=== PATIENT | female | born 1990 | race Caucasian/White ===

== ENCOUNTER 2017-06-08 04:56 | Emergency (ER) | payer OTHER ==
[~2017-06-08] VITALS: Ht 157.5 cm; Wt 70.3 kg
[2017-06-08 05:20] LABS: BILIRUBIN,URINE NEGATIVE (NEG); GLUCOSE,URINE NEGATIVE (NEG); NITRITE,URINE NEGATIVE (NEG); PH,URINE 5.5; PROTEIN,URINE NEGATIVE (NEG-TRACE); UROBILINOGEN,URINE 0.2 mg/dL (0.2 mg/dL)
[2017-06-08 05:30] LABS: BACTERIA,URINE 0 /HPF (0-FEW); SQUAMOUS EPITHELIAL CELL,UR FEW /LPF; WBC,URINE 0 /HPF (0-4)
--- NOTE | 2017-06-08 05:41 | PHYS DOC ---
Past Medical History Past Medical History: No Pertinent History Past Surgical History: No Surgical History Alcohol Use: None Drug Use: None Adult General Chief Complaint Chief Complaint: VAGINAL BLEEDING HPI HPI Patient is a 27 year old female who presents with vaginal bleeding and cramping. She has never been . She has very irregular periods with her LMP February. She doesn't believe she is . She states it started at 0230 am "and I was on the toilet with it bleeding constantly for 1.5 hours." has used one pad. No recent illness; no recent travel. Review of Systems Review of Systems Constitutional: Denies fever or chills Eyes: Denies change in visual acuity, redness, or eye pain HENT: Denies nasal congestion or sore throat Respiratory: Denies cough or shortness of breath Cardiovascular: No chest pain GI: Denies abdominal pain, nausea, vomiting, bloody stools or diarrhea :POS bleeding and cramping. : Denies dysuria or hematuria Musculoskeletal: Denies back pain or joint pain Integument: Denies rash or skin lesions Neurologic: Denies headache, focal weakness or sensory changes Current Medications Current Medications Current Medications Medications (Trade) Dose Ordered Sig/Azar Start Time Stop Time Status Last Admin Dose Admin Fentanyl Citrate (Fentanyl 2ml Vial) 50 mcg 1X ONCE 06/08/17 06:00 06/08/17 06:01 DC 06/08/17 06:22 50 MCG Ondansetron HCl (Zofran) 4 mg 1X ONCE 06/08/17 06:00 06/08/17 06:01 DC 06/08/17 06:23 4 MG Sodium Chloride 1,000 ml @ 1,000 mls/hr 1X ONCE 06/08/17 06:00 06/08/17 06:59 06/08/17 06:23 1,000 MLS/HR Allergies Allergies Allergies Coded Allergies Type Severity Reaction Last Updated Verified No Known Drug Allergies 06/08/17 No Physical Exam Physical Exam Constitutional: Well developed, well nourished, no acute distress, non-toxic appearance. HENT: Normocephalic, atraumatic, bilateral external ears normal, oropharynx moist, no oral exudates, nose normal. Eyes: PERRLA, EOMI, conjunctiva normal, no discharge. Neck: Normal range of motion, no tenderness, supple, no stridor. Cardiovascular:Heart rate regular rhythm, no murmur Lungs & Thorax: Bilateral breath sounds clear to auscultation Abdomen: Bowel sounds normal, soft, no tenderness, no masses, no pulsatile masses. 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 Os open to tip; no cervical motion tenderness. Skin: Warm, dry, no erythema, no rash. Back: No tenderness, no CVA tenderness. Extremities: No tenderness, no cyanosis, no clubbing, ROM intact, no edema. Neurologic: Alert and oriented X 3, normal motor function, normal sensory function, no focal deficits noted. Current Patient Data Vital Signs Vital Signs Date Time Temp Pulse Resp B/P (MAP) Pulse Ox O2 Delivery O2 Flow Rate FiO2 06/08/17 06:22 16 06/08/17 05:16 98.3 79 117/75 (89) 100 Room Air 98.3 Lab Values Laboratory Tests Test 06/08/17 05:13 06/08/17 05:14 06/08/17 05:34 POC Urine HCG, Qualitative Hcg positive (Negative) Urine Collection Type Unknown Urine Color Yellow Urine Clarity Cloudy Urine pH 5.5 Urine Specific [place] 1.025 Urine Protein Negative mg/dL (NEG-TRACE) Urine Glucose (UA) Negative mg/dL (NEG) Urine Ketones (Stick) Negative mg/dL (NEG) Urine Blood Large (NEG) Urine Nitrite Negative (NEG) Urine Bilirubin Negative (NEG) Urine Urobilinogen Dipstick 0.2 mg/dL (0.2 mg/dL) Urine Leukocyte Esterase Negative (NEG) Urine RBC 6-10 /HPF (0-2) Urine WBC 0 /HPF (0-4) Urine Squamous Epithelial Cells Few /LPF Urine Bacteria 0 /HPF (0-FEW) White Blood Count 13.8 x10^3/uL (4.0-11.0) H Red Blood Count 4.32 x10^6/uL (3.50-5.40) Hemoglobin 13.1 g/dL (12.0-15.5) Hematocrit 38.5 % (36.0-47.0) Mean Corpuscular Volume 89 fL (79-100) Mean Corpuscular Hemoglobin 30 pg (25-35) Mean Corpuscular Hemoglobin Concent 34 g/dL (31-37) Red Cell Distribution Width 13.7 % (11.5-14.5) Platelet Count 230 x10^3/uL (140-400) Neutrophils (%) (Auto) 80 % (31-73) H Lymphocytes (%) (Auto) 13 % (24-48) L Monocytes (%) (Auto) 6 % (0-9) Eosinophils (%) (Auto) 1 % (0-3) Basophils (%) (Auto) 0 % (0-3) Neutrophils # (Auto) 11.0 x10^3uL (1.8-7.7) H Lymphocytes # (Auto) 1.8 x10^3/uL (1.0-4.8) Monocytes # (Auto) 0.8 x10^3/uL (0.0-1.1) Eosinophils # (Auto) 0.2 x10^3/uL (0.0-0.7) Basophils # (Auto) 0.1 x10^3/uL (0.0-0.2) Maternal Serum HCG Beta Subunit 3590 mIU/mL (0-5) H Sodium Level 138 mmol/L (136-145) Potassium Level 4.1 mmol/L (3.5-5.1) Chloride Level 103 mmol/L (98-107) Carbon Dioxide Level 28 mmol/L (21-32) Anion Gap 7 (6-14) Blood Urea Nitrogen 18 mg/dL (7-20) Creatinine 0.7 mg/dL (0.6-1.0) Estimated GFR (Cockcroft-Gault) 98.9 BUN/Creatinine Ratio 26 (6-20) H Glucose Level 102 mg/dL (70-99) H Calcium Level 9.1 mg/dL (8.5-10.1) Total Bilirubin 0.2 mg/dL (0.2-1.0) Aspartate Amino Transferase (AST) 21 U/L (15-37) Alanine Aminotransferase (ALT) 32 U/L (14-59) Alkaline Phosphatase 88 U/L (46-116) Total Protein 7.2 g/dL (6.4-8.2) Albumin 3.5 g/dL (3.4-5.0) Albumin/Globulin Ratio 0.9 (1.0-1.7) L Laboratory Tests 06/08/17 05:34 Laboratory Tests 06/08/17 05:34 Course & Med Decision Making Course & Med Decision Making Evaluated patient. POS UCG; informed patient. She is a now. US ordered. Concerned for ectopic vs miscarriage. RH and quant HCG ordered. Patient is comfortable. Fentanyl IV for pain; keep NPO. At 0620 AM US done; awaiting radiologist read. Quant and blood type is pending. Updated patient and care of patient turned over at shift change to Dr Meadows. Daniela Disclaimer Daniela Disclaimer This electronic medical record was generated, in whole or in part, using a voice recognition dictation system. Departure Departure Impression: Primary Impression: Vagina bleeding Referrals: NO PCP (PCP) AMIRA COLE MD Jun 08, 2017 05:41
[2017-06-08 05:57] LABS: BASO # 0.1 x10^3/uL (0.0-0.2); BASO % 0 % (0-3); EOS % 1 % (0-3); HEMATOCRIT 38.5 % (36.0-47.0); HEMOGLOBIN 13.1 g/dL (12.0-15.5); LYMPH # 1.8 x10^3/uL (1.0-4.8); LYMPH % 13 % (24-48); MEAN CORPUSCULAR HEMOGLOBIN 30 pg (25-35); MEAN CORPUSCULAR HGB CONC 34 g/dL (31-37); MEAN CORPUSCULAR VOLUME 89 fL (79-100); MONO % 6 % (0-9); NEUT % 80 % (31-73); PLATELET COUNT 230 x10^3/uL (140-400); RED BLOOD COUNT 4.32 x10^6/uL (3.50-5.40); RED CELL DISTRIBUTION WIDTH 13.7 % (11.5-14.5); WHITE BLOOD COUNT 13.8 x10^3/uL (4.0-11.0)
[2017-06-08] MEDS ORDERED: IV NORMAL SALINE 1000ML BAG 1,000 ML IV ONE (06:00)
[2017-06-08] MEDS ORDERED: fentaNYL PF VIAL 100 MCG/2 ML VIAL IV ONE (06:00)
[2017-06-08] MEDS ORDERED: ONDANSETRON PF 4 MG/2 ML VIAL. IV ONE (06:00)
[2017-06-08 06:01] LABS: CALCIUM 9.1 mg/dL (8.5-10.1); CREATININE 0.7 mg/dL (0.6-1.0); GFR 98.9; POTASSIUM 4.1 mmol/L (3.5-5.1)
[2017-06-08 06:08] LABS: ALBUMIN 3.5 g/dL (3.4-5.0); ALBUMIN/GLOBULIN RATIO 0.9 (1.0-1.7); TOTAL BILIRUBIN 0.2 mg/dL (0.2-1.0); TOTAL PROTEIN 7.2 g/dL (6.4-8.2)
--- NOTE | 2017-06-08 07:19 | RAD ---
Obstetric ultrasound June 08, 2017 at 5:46 AM INDICATION: Vaginal bleeding and cramping COMPARISON: None available TECHNIQUE: Sonographic imaging of the pelvis was performed utilizing transabdominal and transvaginal imaging. Color Doppler, spectral waveform analysis and grayscale was utilized. FINDINGS: The uterus measures 9.5 x 4.9 x 3.9 cm. Gestational sac is not identified. No yolk sac or pole identified. No uterine fibroids are identified. Right ovary measures 3.6 x 1.9 x 1.8 cm. Left ovary measures 3.8 x 2.1 x 2.0 cm. No significant masses are identified. Arterial and venous waveform are identified in both ovaries at the time of imaging. No free fluid is identified. Visualized is a portions of the urinary bladder within normal limits. IMPRESSION: An intrauterine is not identified. Findings could represent very early versus failure versus ectopic . Correlation with beta-hCG is recommended. Recommend serial beta hCG and pelvic ultrasound for further evaluation. Electronically signed by: Jeanie Mtz MD (06/08/2017 7:16 AM) [facility]
[2017-06-08 07:41] VITALS: BP 99/58
== END 2017-06-08 07:45 | disposition home or self-care (01) ==
LOC: ER 04:56
DX: Z33.1 Pregnant state, incidental (principal); N93.9 Abnormal uterine and vaginal bleeding, unspecified
CPT/HCPCS: 36415; 76801; 76817; 80053; 81001; 81025; 84702; 85025; 86900; 86901; 87491; 87591; 96361; 96374; 96375; 99285; J2405; J3010; J7030

== ENCOUNTER 2020-08-17 01:31 | Emergency (ER) | payer OTHER ==
[~2020-08-17] VITALS: Ht 157.5 cm; Wt 84.1 kg
[2020-08-17] MEDS ORDERED: ONDANSETRON PF 4 MG/2 ML VIAL. IVP ONE (02:00)
[2020-08-17] MEDS ORDERED: KETOROLAC 30 MG/ML VIAL. IVP ONE (02:00)
[2020-08-17] MEDS ORDERED: IV NORMAL SALINE 1000ML BAG 1,000 ML IV ONE (02:00)
--- NOTE | 2020-08-17 02:01 | PHYS DOC ---
Past Medical History Past Medical History: No Pertinent History Past Surgical History: No Surgical History Smoking Status: Never Smoker Alcohol Use: None Drug Use: None General Adult EDM: Chief Complaint: ABDOMINAL PAIN HPI: HPI: Patient is a 30 year old female who presents with right upper quadrant abdomina l pain. Patient states she has been having a constant, dull, aching pain in her mid epigastric region radiating through her right upper quadrant and up to her right scapula. Patient states the pain began around 2000 tonight after eating dinner. Since then she has had 3 episodes of vomiting. Patient denies fever or diarrhea. Last Thursday the patient experienced a bout of the same symptoms that began after she ate dinner and lasted throughout the night. She vomited 3 times that night as well. That pain resolved spontaneously around 0500 on Thursday morning. Patient denies taking any medications due to fear of vomiting after ingestion. Patient rates the pain an 8/10. Review of Systems: Review of Systems: Constitutional: Denies fever or chills. [] Eyes: Denies change in visual acuity. [] HENT: Denies nasal congestion or sore throat. [] Respiratory: Denies cough or shortness of breath. [] Cardiovascular: Denies chest pain or edema. [] GI: Denies bloody stools or diarrhea. [Positive for abdominal pain, nausea and vomiting] : Denies dysuria. [] Musculoskeletal: Denies joint pain. [Positive for back pain] Integument: Denies rash. [] Neurologic: Denies headache, focal weakness or sensory changes. [] Endocrine: Denies polyuria or polydipsia. [] Heart Score: Risk Factors: Risk Factors: DM, Current or recent (<one month) smoker, HTN, HLP, family history of CAD, obesity. Risk Scores: Score 0 - 3: 2.5% MACE over next 6 weeks - Discharge Home Score 4 - 6: 20.3% MACE over next 6 weeks - Admit for Clinical Observation Score 7 - 10: 72.7% MACE over next 6 weeks - Early Invasive Strategies Current Medications: Current Medications Medications (Trade) Dose Ordered Sig/Azar Start Time Stop Time Status Last Admin Dose Admin Ketorolac Tromethamine (Toradol 30mg Vial) 30 mg 1X ONCE 08/17/20 01:45 08/17/20 01:46 UNV Ondansetron HCl (Zofran) 4 mg 1X ONCE 08/17/20 01:45 08/17/20 01:46 UNV Sodium Chloride 1,000 ml @ 1,000 mls/hr 1X ONCE 08/17/20 02:00 08/17/20 02:59 UNV Allergies: Allergies: Allergies Coded Allergies Type Severity Reaction Last Updated Verified No Known Drug Allergies 06/08/17 No Physical Exam: PE: Constitutional: Well developed, well nourished, no acute distress, non-toxic appearance. [] HENT: Normocephalic, atraumatic, bilateral external ears normal, oropharynx moist, no oral exudates, nose normal. [] Eyes: PERRLA, EOMI, conjunctiva normal, no discharge. [] Neck: Normal range of motion, no tenderness, supple, no stridor. [] Cardiovascular:Heart rate regular rhythm, no murmur [] Lungs & Thorax: Bilateral breath sounds clear to auscultation [] Abdomen: Bowel sounds normal, soft, no tenderness, no masses, no pulsatile masses. [] Skin: Warm, dry, no erythema, no rash. [] Back: No tenderness, no CVA tenderness. [] Extremities: No tenderness, no cyanosis, no clubbing, ROM intact, no edema. [] Neurologic: Alert and oriented X 3, normal motor function, normal sensory function, no focal deficits noted. [] Psychologic: Affect normal, judgement normal, mood normal. [] EKG: EKG: [] Radiology/Procedures: Radiology/Procedures: [] Impression: []IMPRESSION: Borderline distended gallbladder with cholelithiasis, nonspecific but can be seen with cholecystitis. Correlate clinically and consider right upper quadrant ultrasound for further evaluation if indicated. Mild sigmoid diverticulosis without evidence of diverticulitis. Course & Med Decision Making: Course & Med Decision Making Pertinent Labs and Imaging studies reviewed. (See chart for details) []IMPRESSION: Patient was evaluated for chief complaint. Work-up consisted of laboratory analysis and radiologic imaging. Results reviewed and discussed with patient. Patient LFTs were normal limits. Patient with mild elevation of her white blood cell count. CT imaging shows distended gallbladder with multiple stones. Treatment included Toradol for pain. Patient states post treatment pain completely resolved. Patient given follow-up information for general surgery. She was discharged with a prescription of [place]. Patient advised to take Tylenol and/or ibuprofen for pain. Patient advised to return to the ER if symptoms return persist or any new concerning symptoms arise. Dragon Disclaimer: Daniela Disclaimer: This electronic medical record was generated, in whole or in part, using a voice recognition dictation system. Departure Departure Impression: Primary Impression: Cholelithiases Disposition: 01 DC HOME SELF CARE/HOMELESS Condition: STABLE Referrals: NO PCP (PCP) Patient Instructions: Cholelithiasis Scripts Hydrocodone/Apap 5-325 (NORCO 5-325 TABLET) 1 Each Tablet 1 TAB PO PRN Q6HRS PRN for PAIN for 10 Days, #20 TAB 0 Refills Prov: LISA LOPES I DO 08/17/20 LISA LOPES I DO Aug 17, 2020 02:01
[2020-08-17 02:13] LABS: BASO # 0.1 x10^3/uL (0.0-0.2); BASO % 1 % (0-3); EOS # 0.2 x10^3/uL (0.0-0.7); EOS % 1 % (0-3); HEMATOCRIT 40.7 % (36.0-47.0); HEMOGLOBIN 13.7 g/dL (12.0-15.5); LYMPH # 2.6 x10^3/uL (1.0-4.8); LYMPH % 23 % (24-48); MEAN CORPUSCULAR HEMOGLOBIN 30 pg (25-35); MEAN CORPUSCULAR HGB CONC 34 g/dL (31-37); MEAN CORPUSCULAR VOLUME 89 fL (79-100); MONO # 0.6 x10^3/uL (0.0-1.1); MONO % 6 % (0-9); NEUT # 7.9 x10^3/uL (1.8-7.7); NEUT % 69 % (31-73); PLATELET COUNT 250 x10^3/uL (140-400); RED BLOOD COUNT 4.57 x10^6/uL (3.50-5.40); RED CELL DISTRIBUTION WIDTH 12.8 % (11.5-14.5); WHITE BLOOD COUNT 11.3 x10^3/uL (4.0-11.0)
[2020-08-17 02:20] LABS: CALCIUM 9.2 mg/dL (8.5-10.1); GFR 64.3; POTASSIUM 3.7 mmol/L (3.5-5.1)
[2020-08-17 02:26] LABS: ALBUMIN 3.9 g/dL (3.4-5.0); ALBUMIN/GLOBULIN RATIO 1.1 (1.0-1.7); TOTAL BILIRUBIN 0.3 mg/dL (0.2-1.0); TOTAL PROTEIN 7.6 g/dL (6.4-8.2)
[2020-08-17] MEDS ORDERED: IOHEXOL 300 MG/ML 100ML VIAL. IV ONE (03:00)
--- NOTE | 2020-08-17 03:12 | RAD ---
EXAMINATION: CT ABD PELV W/ IV CONTRST ONLY (CT ABDOMEN/PELVIS WITH IV CONTRAST) CLINICAL HISTORY: Right upper quadrant abdominal pain TECHNIQUE: CT of the abdomen and pelvis was performed using standard technique, scanning from just above the dome of the diaphragm to the symphysis pubis following administration of intravenous contrast. CT Dose Reduction Employed: One or more of the following individualized dose reduction techniques were utilized for this examination: 1. Automated exposure control 2. Adjustment of the mA and/or kV according to patient size 3. Use of iterative reconstruction technique. COMPARISON: None FINDINGS: Partially visualized heart and lung base is unremarkable. Borderline distended gallbladder with innumerable dependent tiny calcified stones. No evidence of wall thickening or pericholecystic fluid on limited CT evaluation. No biliary ductal dilation. Liver, gallbladder, spleen, and adrenal glands unremarkable. Subcentimeter hypoenhancing cortical focus in the midpole the left kidney, too small adequately evaluated but likely benign. Right kidney unremarkable. Decompressed urinary bladder suboptimally evaluated. Crenulated hyperdensity in the left ovary, suggestive of an involuting cyst/corpus luteum. Right ovary and uterus unremarkable. Mild free fluid in the pelvis, likely physiologic versus reactive. No bowel dilation or definite wall thickening. Mild sigmoid diverticulosis without definitive evidence of diverticulitis, though lack of adequate distention limits evaluation for wall thickening. Normal appendix. No abdominal aortic or iliac artery aneurysm. No significant lymphadenopathy. Minimal degenerative changes in the lower thoracic spine. IMPRESSION: Borderline distended gallbladder with cholelithiasis, nonspecific but can be seen with cholecystitis. Correlate clinically and consider right upper quadrant ultrasound for further evaluation if indicated. Mild sigmoid diverticulosis without evidence of diverticulitis. Electronically signed by: Robby Marin DO (08/17/2020 3:09 AM) [facility]
[2020-08-17] MEDS ORDERED: CONTRAST GIVEN. MC PRN (03:15)
[2020-08-17] MEDS ORDERED: HYDR-3164 PO (03:24)
[2020-08-17 03:30] VITALS: BP 118/67
== END 2020-08-17 03:40 | disposition home or self-care (01) ==
LOC: ER 01:46
DX: K80.20 Calculus of gallbladder without cholecystitis without obstruction (principal); K57.30 Diverticulosis of large intestine without perforation or abscess without bleeding
CPT/HCPCS: 36415; 74177; 80053; 81025; 83690; 85025; 96361; 96374; 96375; 99285; J1885; J2405; J7030; Q9967

== ENCOUNTER → 2020-09-24 | Outpatient (CLI) | payer OTHER, BC ==
[~2020-09-24] MED LIST: HYDR-3164 PO
== END ==
LOC: LAB 12:57
PROVIDERS: ATTEND Surgery
DX: Z01.812 Encounter for preprocedural laboratory examination (principal); K81.1 Chronic cholecystitis; Z20.828 Contact with and (suspected) exposure to other viral communicable diseases
CPT/HCPCS: U0003

== ENCOUNTER 2020-09-27 06:02 | Day surgery (SDC) | payer OTHER, BC ==
[~2020-09-27] VITALS: Ht 157.5 cm; Wt 85.0 kg
[~2020-09-27 06:02] MED LIST changes: +INDOCYANINE GREEN 2.5 MG in TOTAL VOLUME SYRINGE 1 ML IVP ONE
[2020-09-27] MEDS: IV RINGERS,LACTATED 1000ML 1,000 ML IV SCH ×2 (06:28→07:18)
[2020-09-27] MEDS ORDERED: DEXAMETHASONE SOD PHOS 4 MG/ML VIAL ONE (06:39)
[2020-09-27] MEDS ORDERED: ONDANSETRON PF 4 MG/2 ML VIAL. ONE (06:39)
[2020-09-27] MEDS ORDERED: LIDOCAINE 2% PF 5 ML VIAL. ONE (06:39)
[2020-09-27] MEDS ORDERED: PROPOFOL 10 MG/ML (20ML) VIAL. IV ONE (06:39)
[2020-09-27] MEDS ORDERED: ROCURONIUM 50 MG/5 ML VIAL. ONE (06:40)
[2020-09-27] MEDS ORDERED: ONDANSETRON PF 4 MG/2 ML VIAL. IV PRN (07:00)
[2020-09-27] MEDS ORDERED: fentaNYL PF VIAL 100 MCG/2 ML VIAL IV PRN ×2 (07:00)
[2020-09-27] MEDS ORDERED: PROCHLORPERAZINE 10 MG/2 ML VIAL. IV PRN (07:00)
[2020-09-27] MEDS ORDERED: ACETAMINOPHEN 500 MG TABLET PO ONE (07:00)
[2020-09-27] MEDS ORDERED: LIDOCAINE 1% PF 2 ML VIAL. ID PRN (07:00)
[2020-09-27] MEDS ORDERED: MORPHINE SULFATE 2 MG/ML VIAL. IV PRN (07:00)
[2020-09-27] MEDS ORDERED: HYDROmorphone 2 MG/ML VIAL IV PRN (07:00)
[2020-09-27] MEDS ORDERED: SURGICEL HEMOSTAT 4X8 EACH. ONE (07:19)
[2020-09-27] MEDS ORDERED: MIDAZOLAM HCL/PF 2 MG/2 ML VIAL. ONE (07:20)
--- NOTE | 2020-09-27 07:26 | PDOC1 ---
History and Physical Date of Admission Date of Admission DATE: 09/27/20 TIME: 07:24 Identification/Chief Complaint Chief Complaint Abdominal pain Source Source: Patient History of Present Illness History of Present Illness 30-year-old female with right upper quadrant abdominal pain radiating to her right shoulder seen in the emergency department for evaluation CT scan shows gallstones. Past Medical History Cardiovascular: No pertinent hx Pulmonary: No pertinent hx GI: No pertinent hx Heme/Onc: No pertinent hx Hepatobiliary: No pertinent hx Psych: No pertinent hx Rheumatologic: No pertinent hx Infectious disease: No pertinent hx ENT: No pertinent hx Renal/: No pertinent hx Endocrine: No pertinent hx Dermatology: No pertinent hx Past Surgical History Past Surgical History: No pertinent history Family History Family History: No Significant Social History Smoke: No ALCOHOL: rare Drugs: None Current Medications Current Medications Current Medications Indocyanine Green 2.5 mg/ Miscellaneous 1 ml @ 60 mls/hr 1X ONCE IVP Last admi nistered on 09/27/20at 07:19; Start 09/27/20 at 06:00; Stop 09/27/20 at 06:01; Status DC Ondansetron HCl (Zofran) 4 mg PRN Q6HRS PRN IV NAUSEA/VOMITING; Start 09/27/20 at 07:00; Stop 09/28/20 at 06:59 Fentanyl Citrate (Fentanyl 2ml Vial) 25 mcg PRN Q5MIN PRN IV MILD PAIN 1-3; Start 09/27/20 at 07:00; Stop 09/28/20 at 06:59 Fentanyl Citrate (Fentanyl 2ml Vial) 50 mcg PRN Q5MIN PRN IV MODERATE TO SEVERE PAIN; Start 09/27/20 at 07:00; Stop 09/28/20 at 06:59 Morphine Sulfate (Morphine Sulfate) 1 mg PRN Q10MIN PRN IV SEVERE PAIN 7-10; Start 09/27/20 at 07:00; Stop 09/28/20 at 06:59 Ringer's Solution 1,000 ml @ 30 mls/hr Q24H IV Last administered on 09/27/20at 07:18; Start 09/27/20 at 07:00; Stop 09/27/20 at 18:59 Lidocaine HCl (Xylocaine-Mpf 1% 2ml Vial) 2 ml PRN 1X PRN ID PRIOR TO IV START; Start 09/27/20 at 07:00; Stop 09/28/20 at 06:59 Hydromorphone HCl (Dilaudid) 0.5 mg PRN Q10MIN PRN IV SEV PAIN, Second choice; Start 09/27/20 at 07:00; Stop 09/28/20 at 06:59 Prochlorperazine Edisylate (Compazine) 5 mg PACU PRN PRN IV NAUSEA, MRX1; Start 09/27/20 at 07:00; Stop 09/28/20 at 06:59 Cefazolin Sodium/ Dextrose 50 ml @ 100 mls/hr 1X PREOP PRN IV PRIOR TO PROCEDURE; Start 09/27/20 at 06:00; Stop 09/27/20 at 18:00 Acetaminophen (Tylenol) 1,000 mg 1X ONCE PO Last administered on 09/27/20at 07:19; Start 09/27/20 at 07:00; Stop 09/27/20 at 07:01; Status DC Lidocaine HCl (Lidocaine Pf 2% Vial) 5 ml STK-MED ONCE .ROUTE ; Start 09/27/20 at 06:39; Stop 09/27/20 at 06:40; Status DC Propofol (Diprivan) 200 mg STK-MED ONCE IV ; Start 09/27/20 at 06:39; Stop 09/27/20 at 06:40; Status DC Ondansetron HCl (Zofran) 4 mg STK-MED ONCE .ROUTE ; Start 09/27/20 at 06:39; Stop 09/27/20 at 06:40; Status DC Dexamethasone Sodium Phosphate (Decadron) 4 mg STK-MED ONCE .ROUTE ; Start 09/27/20 at 06:39; Stop 09/27/20 at 06:40; Status DC Rocuronium [place] (Zemuron) 50 mg STK-MED ONCE .ROUTE ; Start 09/27/20 at 06:40; Stop 09/27/20 at 06:40; Status DC Cellulose (Surgicel Hemostat 4x8) 1 each STK-MED ONCE .ROUTE ; Start 09/27/20 at 07:19; Stop 09/27/20 at 07:20; Status DC Midazolam HCl (Versed) 2 mg STK-MED ONCE .ROUTE ; Start 09/27/20 at 07:20; Stop 09/27/20 at 07:20; Status DC Active Scripts Active [place] 5-325 Tablet (Acetaminophen/Hydrocodone Bitart) 1 Each Tablet 1 Tab PO PRN Q6HRS PRN 10 Days Allergies Allergies: Coded Allergies: No Known Drug Allergies (Unverified , 09/27/20) ROS Gastrointestinal: Yes Abdominal Pain Physical Exam General: Alert, Oriented X3, Cooperative, No acute distress HEENT: Atraumatic, EOMI Lungs: Clear to auscultation, Normal air movement Heart: RRR, no murmurs Abdomen: Normal bowel sounds, Soft, Other (Tender to palpation right upper quadrant) Rectal Exam: not examined Extremities: No edema Skin: No significant lesion Neuro: Normal speech Psych/Mental Status: Mental status NL Vitals Vitals Vital Signs Date Time Temp Pulse Resp B/P (MAP) Pulse Ox O2 Delivery O2 Flow Rate FiO2 09/27/20 06:22 97.7 76 18 123/71 100 Room Air 97.7 Labs Labs Laboratory Tests Test 09/27/20 06:16 Bedside Urine HCG, Qualitative Hcg negative (Negative) Laboratory Tests Test 09/27/20 06:16 Bedside Urine HCG, Qualitative Hcg negative (Negative) Images Images CT scan of the abdomen showing gallstones VTE Prophylaxis Ordered VTE Prophylaxis Devices: Yes VTE Pharmacological Prophylaxi: Contraindicated Assessment/Plan Assessment/Plan Chronic cholecystitis with cholelithiasis plan robotic assisted laparoscopic cholecystectomy Justifications for Admission Other Justification URIEL NUNEZ MD Sep 27, 2020 07:26
[2020-09-27] MEDS ORDERED: BUPIVACAINE-EPI 0.25%-1:200000 MPF 30 ML VIAL. INJ ONE (07:30)
[2020-09-27] MEDS ORDERED: SEVOFLURANE 61 TO 120 MINUTES. IH ONE (07:48)
[2020-09-27] MEDS ORDERED: KETOROLAC 30 MG/ML VIAL. ONE (07:49)
[2020-09-27] MEDS ORDERED: NEOSTIGMINE METHYLSULFATE 5 MG/5 ML SYRINGE. ONE (07:52)
[2020-09-27] MEDS ORDERED: fentaNYL PF VIAL 100 MCG/2 ML VIAL ONE ×2 (07:52→08:54)
[2020-09-27] MEDS ORDERED: GLYCOPYRROLATE 1 MG/5 ML VIAL. ONE (07:53)
--- NOTE | 2020-09-27 08:20 | PDOC4 ---
Operative Note Operative Note Date: September 272020 at 817 Preoperative diagnosis: Chronic cholecystitis cholelithiasis Postoperative diagnosis: Same Procedure: Robotic assisted laparoscopic cholecystectomy Surgeon: Jeremy Specimen: Gallbladder Dictation: Patient is a 30-year-old female with right upper quadrant abdominal pain ultrasound showing gallstones. Procedure of robotic assisted laparoscopic cholecystectomy was explained to the patient detail risk benefits were also discussed including bleeding infection injury to intra-abdominal contents possible necessitating further open operations alternatives to this procedure also discussed with the patient who seemed to understand and gave both verbal and written consent to have the procedure performed. Patient was taken to the operating room placed in the supine position general anesthesia was initiated once patient was sleeping intubated her abdomen was prepped and draped usual sterile fashion using ChloraPrep. An area just below the umbilicus was injected with quarter percent Marcaine with epinephrine incision was made 11 blade scalpel and a varies needle was placed within the abdomen creating pneumoperitoneum once this was complete a 12 mm port was placed and a 12 mm da V LivQuiki camera was placed within the abdomen which was inspected no other red maladies were noted. 8 mm da Robbi port was placed in the right midabdomen and an 8 mm da Robbi port was placed in the left midabdomen. The da Robbi robot was brought and docked all port sites, a small 3 mm alligator grasper was placed through the right upper quadrant and the dome of the gallbladder is grasped with the alligator clamp. Surgeon went to the robotic console using a grasper and hook cautery the infundibular gallbladder is grasped retracted laterally exposing the triangle that here tissues the triangle were taken down with with blunt and sharp dissection exposing the cystic duct and cystic artery. ICG 9 was evaluated showing the cystic duct and the common bile duct anatomy. The cystic duct was doubly clipped and transected the cystic artery was clipped on the distal side and then transected with electrocautery the gallbladder was taken off the liver with hook electrocautery. Surgeon went back to the operative field and the gallbladder was removed from the umbilical port site through an Endo Catch bag. The fascia at the umbilical site was closed with [id number] Vicryl suture and the skin was reapproximate all port sites for subcuticular Monocryl Mastisol Steri-Strips and island dressings were applied. Patient was awakened and extubated in the operating room taken to recovery in stable condition all sponge instrument needle counts listed as correct estimated blood loss 5 mL. URIEL NUNEZ MD Sep 27, 2020 08:20
--- NOTE | 2020-09-27 08:22 | DISCH ---
DISCHARGE INSTRUCTIONS Condition on Discharge Condition on Discharge: Stable Activity After Discharge Activity Instructions for Disc: Avoid exertion Other activity instructions: No lifting more than 20 pounds for 2 weeks Diet after Discharge Diet after Discharge: Low Fat Wound Incision Care Other wound/incision instructi: May shower in 24 hours Contacting the after DC Call your doctor for: If your condition worsens Follow-Up Follow up with: Dr. Nunez in 2 weeks URIEL NUNEZ MD Sep 27, 2020 08:22
[2020-09-27] MEDS ORDERED: oxyCODONE/APAP 5/325 1 TAB TABLET PO ONE ×2 (08:45)
[2020-09-27 09:45] VITALS: BP 94/60
== END 2020-09-27 10:00 | disposition home or self-care (01) ==
LOC: SURG 06:02
PROVIDERS: ATTEND Surgery
DX: K80.10 Calculus of gallbladder with chronic cholecystitis without obstruction (principal); Z79.899 Other long term (current) drug therapy; Z98.890 Other specified postprocedural states; Z72.89 Other problems related to lifestyle
CPT/HCPCS: 47562; 81025; J0690; J1100; J1885; J2250; J2405; J2704; J2710; J3010; J3490; S2900